=== PATIENT | male | born 1980 | race Two or more races ===

== ENCOUNTER 2019-06-30 01:42 | Emergency (ER) | payer OTHER ==
--- NOTE | 2019-06-30 02:43 | PDOC ---
Attending Attestation - Resident Resident Name: Monik Hooker - ED Attending Attestation I have performed the following: I have examined & evaluated the patient, The case was reviewed & discussed with the resident, I agree w/resident's findings & plan - HPI HPI: 06/30/19 06:53 Pt comes with right and left leg/foot swelling; left worse than right Pt states that it is painful to walk on the left foot. Pt has swelling, but no hx of blood clots, no travel, no stasis, no cancers. No smoking, and no risk factors for blood clots other than obesity and DM. - Physicial Exam PE: 06/30/19 06:54 Normal heart and lungs afebrile abd obese NT ND No flank pain Rashes on body (itchy rash linear /?bites vs scabies) - Medical Decision Making 07/05/19 22:44 Pt will be signed out to the day team for DVT study. D-dimer is elevated. Pt has normal CBC and comp; Pt has 3+ glc in his urine, but blood glc is well controlled.
[2019-06-30 02:45] VITALS: BMI 33.0
--- NOTE | 2019-06-30 02:57 | PDOC ---
History of Present Illness - General Chief Complaint: Edema Stated Complaint: FOOT PAIN,FEVER Time Seen by Provider: 06/30/19 02:36 - History of Present Illness Initial Comments: Mira Moore is a 39yo man with a PMH of IDDM, HTN, HLD who presents to the ED with left foot and ankle pain, swelling and itching that started this evening. He reports that he was out walking this evening, felt itching on his left ankle, and went to rinse his foot and ankle in water. He noticed that his foot was swollen and tender, so he came to the ED for evaluation. Mr Moore states that he had a similar incident about a week ago involving his right wrist. The wrist was itchy, painful, and swollen but the symptoms resolved without intervention. He was not seen by a doctor and did not take any medication. He also notes that he has been very itchy recently with red bumps over his back and extremities on several occasions. He still has some of the itchy bumps on his back. He has also not taken any medication for this symptom. He has not had any throat swelling, difficulty swallowing, difficulty breathing , wheezing, or cough. He has no known allergies or history of asthma. He denies any new soaps, detergents, foods, or other exposures. He says that no one in his family has similar markings, either the itching bumps or scabbed lesions that he notes on his ankles, which he said occurred from his son accidentally scratching him while helping him with the itching skin. 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 Past History - Past Medical History Allergies/Adverse Reactions: Allergies Allergy/AdvReac Type Severity Reaction Status Date / Time No Known Allergies Allergy Verified 06/30/19 02:33 Home Medications: Ambulatory Orders Gabapentin 300 mg PO TID 06/30/19 Icosapent Ethyl [Vascepa] 1 gm PO TID 06/30/19 Insulin Aspart [Novolog] 100 unit SQ TID 06/30/19 Insulin Degludec [Tresiba Flextouch U-100] 100 unit SQ HS 06/30/19 Lisinopril [Zestril] 2.5 mg PO DAILY 06/30/19 Sitagliptin Phos/Metformin HCl [Janumet 50-1,000 mg Tablet] 1 each PO BID COPD: No Diabetes: Yes HTN: Yes Hypercholesterolemia: Yes - Surgical History Orthopedic Surgery: Yes (RIGHT FOOT) - Psycho Social/Smoking Cessation Hx Smoking History: Former smoker Have you smoked in the past 12 months: No Number of Cigarettes Smoked Daily: 4 Information on smoking cessation initiated: No 'Breaking Loose' booklet given: 06/20/16 Hx Alcohol Use: No Drug/Substance Use Hx: No Review of Systems - Review of Systems Comments:: General: No fevers, no chills, no weight or appetite change, no malaise HEENT: No changes in vision, no changes in hearing, no congestion, no sore throat CV: No chest pain, no palpitations, no LE edema Pulm: No SOB, no cough, no wheezing GI: No nausea or vomiting, no change in bowel habits, no melena : No frequency, no urgency, no dysuria Musc: No back pain, + joint swelling, no recent injury Skin: See HPI Endo: No excessive thirst, no heat/cold intolerance. h/o IDDM Heme: No unusual bruising or bleeding, no swollen glands Neuro: No syncope, no numbness/tingling, no focal weakness Vasc: No claudication Psych: No recent change in mood, no SI or HI *Physical Exam - Vital Signs Last Vital Signs Temp Pulse Resp BP Pulse Ox 99.0 F 109 H 17 160/86 97 06/30/19 02:29 06/30/19 02:29 06/30/19 02:29 06/30/19 02:29 06/30/19 02:29 - Physical Exam General: Comfortable, no acute distress HEENT: Atraumatic, PERRL, EOMI, MMM, voice normal, normal neck ROM Cards: RRR, no murmur appreciated Pulm: Comfortable on room air, clear to auscultation bilaterally Abd: Soft, nontender, nondistended Ext: 2+ Nonpitting BLE edema, L>R. Left foot and ankle diffusely TTP without visible injury or deformity. No calf tenderness, no erytema. ROM intact. Vasc: Extremities WWP. Skin: Erythematous, 1cm wheals over back and right wrist and forearm. Small scabbed lesions in linear patterns on all extremities, especially b/l shins Neuro: A&Ox3, CN grossly intact, normal speech, motor/sensory grossly intact and symmetric Psych: Mood appropriate to situation ED Treatment Course - LABORATORY CBC & Chemistry Diagram: 06/30/19 03:45 06/30/19 03:45 Medical Decision Making - Medical Decision Making 06/30/19 02:56 Gertrudisalejandra Moore is a 39yo man with a PMH of IDDM, HTN, HLD who presents to the ED with left foot and ankle pain, swelling and itching that started this evening. He reports a similar incident with his right wrist about a week ago that resolved without intervention. He additionally notes intermittent full body itching with raised erythematous lesions recently as well. - Unclear combination of symptoms including BLE swelling, hives over back and upper extremities, itching, TTP over left foot and ankle. 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 No respiratory or airway compromise appreciated. Benadryl for itching 06/30/19 04:28 - Labs reviewed. Notable for d-dimer 4500 - Eliquis and CTA chest ordered by Dr Zapata due to concern for DVT/PE - BLE duplex to be completed when US department is open in the morning - Foot xray negative for acute injury, notes swelling 06/30/19 07:13 - CTA chest negative - Duplex to be completed - Patient signed out to Dr Baeza for the remainder of his ED care Discussed with Dr Jodi Hooker PGY2 Discharge - Discharge Information Problems reviewed: Yes Clinical Impression/Diagnosis: Hives of unknown origin, Leg swelling, Elevated d-dimer - Follow up/Referral - Patient Discharge Instructions - Post Discharge Activity
[2019-06-30] MEDS ORDERED: diphenhydrAMINE HCL 50 MG CAPSULE PO ONE (03:06)
[2019-06-30] MEDS ORDERED: diphenhydrAMINE HCL 25 MG CAPSULE (FP) PO ONE (03:17)
[2019-06-30] MEDS ORDERED: SODIUM CHLORIDE 0.9% 500 ML INFUS.BAG IV ONE (03:30)
[2019-06-30 03:56] LABS: BASO % 0.3 % (0-2.0); EOS % 2.7 % (0-4.5); HEMATOCRIT 38.1 % (35.4-49); HEMOGLOBIN 12.2 GM/dL (11.7-16.9); LYMPH % 15.1 % (8-40); MCH 21.6 pg (25.7-33.7); MCHC 31.9 g/dl (32.0-35.9); MEAN CELL VOLUME 67.5 fl (80-96); MEAN PLT VOLUME 9.1 fl (7.5-11.1); MONO % 4.7 % (3.8-10.2); NEUT % 77.2 % (42.8-82.8); PLATELET COUNT 218 K/MM3 (134-434); RBC 5.64 M/mm3 (4.00-5.60); RDW 18.2 % (11.9-15.9); WHITE BLOOD COUNT 10.4 K/mm3 (4.0-10.0)
[2019-06-30 04:16] LABS: ALBUMIN 4.1 g/dl (3.4-5.0); BILIRUBIN,TOTAL 0.9 mg/dL (0.2-1); CALCIUM 9.3 mg/dL (8.5-10.1); CREATININE 0.8 mg/dL (0.55-1.3); POTASSIUM 4.4 mmol/L (3.5-5.1)
[2019-06-30 04:28] LABS: PH,URINE 6.5 (5.0-8.0); URINE APPEARANCE CLEAR; URINE BILIRUBIN NEGATIVE (NEGATIVE); URINE COLOR YELLOW; URINE GLUCOSE (UA) 3+ (NEGATIVE); URINE KETONE NEGATIVE (NEGATIVE); URINE LEUK ESTERASE NEGATIVE (NEGATIVE); URINE NITRITE NEGATIVE (NEGATIVE); URINE PROTEIN NEGATIVE (NEGATIVE); URINE UROBILINOGEN 0.2 mg/dL (0.2-1.0)
[2019-06-30] MEDS ORDERED: APIXABAN 5 MG TABLET ONE (04:35)
[2019-06-30] MEDS ORDERED: APIXABAN 5 MG TABLET PO ONE (04:37)
[2019-06-30 04:40] LABS: INR 0.99 (0.83-1.09); PROTHROMBIN TIME (PATIENT) 11.7 SEC (9.7-13.0)
--- NOTE | 2019-06-30 07:08 | PDOC ---
History of Present Illness - General Chief Complaint: Edema Stated Complaint: FOOT PAIN,FEVER Time Seen by Provider: 06/30/19 02:36 - History of Present Illness Initial Comments: Patient signed out by Dr. Hooker 39yo M with PMH of IDDM, HTN, HLD who presents to the ED with left foot and ankle pain, swelling and itching that started this evening. Ddimer 4500 Eliquis and CTA chest ordered by Dr Zapata due to concern for DVT/PE Benadryl administered PCP is Dr. Abhishek Mayers CTA as read by imaging quality control technician: "Mild hepatomegaly and steatosis. Mild nonspecific splenomegaly. Mild degenerative disc disease. FINDINGS: No large central pulmonary embolism. Evaluation of the distal segmental branches are limited by artifact. No aortic aneurysm or dissection. Heart size within normal limits. Mild basilar atelectasis. No pleural effusion. No pneumothorax. Mild nonspecific bilateral breast enlargement most likely due to gynecomastia. Subcentimeter mediastinal and hilar lymph nodes noted. Small hiatal hernia with mild nonspecific lower esophageal wall thickening most likely due to mild reflux esophagitis. IMPRESSION: No large central pulmonary embolism. Mild nonspecific bilateral breast enlargement most likely due to gynecomastia. If clinically indicated follow-up outpatient bilateral breast ultrasound may be needed. Small hiatal hernia with mild nonspecific lower esophageal wall thickening most likely due to mild reflux esophagitis. Mild hepatomegaly and steatosis. Mild nonspecific splenomegaly. This CT exam was performed using one or more of the following dose reduction techniques: automated exposure control, adjustment of the mA and/or kV according to patient size, use of iterative reconstruction technique." Pending Duplex when US is available in the morning 06/30/19 07:21 Duplex negative for DVT: "EXAM#: TYPE/EXAM: RESULT: [id number] US/DUPLEX VASCUL US-2LEGS Bilateral leg pain. Rule out DVT Bilateral leg color Doppler and duplex venous ultrasound Grayscale, pulsed Doppler and color Doppler interrogation of both lower extremities deep venous system was performed. The common femoral vein, femoral vein, popliteal and posterior tibial vein were identified, bilaterally with a normal phasic wave form, adequate compressibility and adequate response to augmentation. Visualized portion of the greater saphenous and deep femoral vein are patent No Lawrence's cyst is identified in the popliteal fossa, bilaterally. Impression: There is no evidence of deep venous thromboses in both lower extremities. " 06/30/19 10:10 Imaging studies negative for PE and DVT His burning foot pain and history of diabetes may be due to neuropathy To follow up with PCP Motrin/tylenol sent to pharmacy Stable for discharge Return precautions Past History - Past Medical History Allergies/Adverse Reactions: Allergies Allergy/AdvReac Type Severity Reaction Status Date / Time No Known Allergies Allergy Verified 06/30/19 02:33 Home Medications: Ambulatory Orders Acetaminophen [Pain Relief] 500 mg PO Q6H PRN #30 tablet 06/30/19 Gabapentin 300 mg PO TID 06/30/19 Ibuprofen [Motrin -] 600 mg PO QID PRN #28 tablet 06/30/19 Icosapent Ethyl [Vascepa] 1 gm PO TID 06/30/19 Insulin Aspart [Novolog] 100 unit SQ TID 06/30/19 Insulin Degludec [Tresiba Flextouch U-100] 100 unit SQ HS 06/30/19 Lisinopril [Zestril] 2.5 mg PO DAILY 06/30/19 Sitagliptin Phos/Metformin HCl [Janumet 50-1,000 mg Tablet] 1 each PO BID COPD: No Diabetes: Yes HTN: Yes Hypercholesterolemia: Yes - Surgical History Orthopedic Surgery: Yes (RIGHT FOOT) - Psycho Social/Smoking Cessation Hx Smoking History: Former smoker Have you smoked in the past 12 months: No Number of Cigarettes Smoked Daily: 4 Information on smoking cessation initiated: No 'Breaking Loose' booklet given: 06/20/16 Hx Alcohol Use: No Drug/Substance Use Hx: No *Physical Exam - Vital Signs Last Vital Signs Temp Pulse Resp BP Pulse Ox 99.0 F 109 H 17 160/86 97 06/30/19 02:29 06/30/19 02:29 06/30/19 02:29 06/30/19 02:29 06/30/19 02:29 ED Treatment Course - LABORATORY CBC & Chemistry Diagram: 06/30/19 03:45 06/30/19 03:45 - ADDITIONAL ORDERS Additional order review: Laboratory Results 06/30/19 06/30/19 06/30/19 04:13 03:45 03:45 PT with INR 11.70 INR 0.99 PTT (Actin FS) D-Dimer Sodium Potassium Chloride Carbon Dioxide Anion Gap BUN Creatinine Est GFR (CKD-EPI)AfAm Est GFR (CKD-EPI)NonAf Random Glucose Calcium Total Bilirubin AST ALT Alkaline Phosphatase B-Natriuretic Peptide 19.0 Total Protein Albumin Urine Color Yellow Urine Appearance Clear Urine pH 6.5 Ur Specific [place] 1.027 Urine Protein Negative Urine Glucose (UA) 3+ H Urine Ketones Negative Urine Blood Negative Urine Nitrite Negative Urine Bilirubin Negative Urine Urobilinogen 0.2 Ur Leukocyte Esterase Negative 06/30/19 06/30/19 06/30/19 03:45 03:45 03:45 PT with INR INR PTT (Actin FS) 36.8 H D-Dimer 4497 H Sodium 138 Potassium 4.4 Chloride 104 Carbon Dioxide 27 Anion Gap 8 BUN 14.0 Creatinine 0.8 Est GFR (CKD-EPI)AfAm 129.51 Est GFR (CKD-EPI)NonAf 111.74 Random Glucose 224 H Calcium 9.3 Total Bilirubin 0.9 AST 15 ALT 15 Alkaline Phosphatase 80 B-Natriuretic Peptide Total Protein 7.0 Albumin 4.1 Urine Color Urine Appearance Urine pH Ur Specific [place] Urine Protein Urine Glucose (UA) Urine Ketones Urine Blood Urine Nitrite Urine Bilirubin Urine Urobilinogen Ur Leukocyte Esterase 06/30/19 03:45 RBC 5.64 H MCV 67.5 L MCHC 31.9 L RDW 18.2 H MPV 9.1 Neutrophils % 77.2 Lymphocytes % 15.1 Monocytes % 4.7 Eosinophils % 2.7 Basophils % 0.3 - Medications Given in the ED: ED Medications Discontinued Medications Generic Name Dose Route Start Last Admin Trade Name Freq PRN Reason Stop Dose Admin Apixaban 10 mg 06/30/19 04:37 06/30/19 05:38 Eliquis - PO 06/30/19 04:38 10 mg NOW ONE Administration Diphenhydramine HCl 50 mg 06/30/19 03:06 06/30/19 03:21 Benadryl - PO 06/30/19 03:07 50 mg ONCE ONE Administration Sodium Chloride 1,000 ml 06/30/19 03:30 06/30/19 04:02 Normal Saline - IV 06/30/19 03:31 1,000 ml ONCE ONE Administration Discharge - Discharge Information Problems reviewed: Yes Clinical Impression/Diagnosis: Hives of unknown origin, Leg swelling, Elevated d-dimer Condition: Stable Disposition: HOME - Additional Discharge Information Prescriptions: Acetaminophen [Pain Relief] 500 mg PO Q6H PRN #30 tablet PRN Reason: Pain Ibuprofen [Motrin -] 600 mg PO QID PRN #28 tablet PRN Reason: Pain - Follow up/Referral - Patient Discharge Instructions Patient Printed Discharge Instructions: DI for Leg Pain Additional Instructions: You came into the emergency department for leg pain. CT and ultrasound did not show evidence of a blood clot. Follow-up with your primary care provider within 72 hours. Your care is not complete until you do so. Call and make an appointment. Immediate medical attention is required if you have -severe pain -lightheadedness -shortness of breath -high fever -any other concerning symptoms If you think you are having an emergency, call for emergency medical services or present to the emergency department right away. - Post Discharge Activity Work/Back to School Note: Back to Work
[2019-06-30] MEDS ORDERED: APIXABAN 5 MG TABLET PO SCH (10:00)
[2019-06-30 10:53] VITALS: BP 130/83; PULSE 89; TEMP 97.3
== END 2019-06-30 10:55 | disposition home or self-care (01) ==
LOC: JER 01:42
DX: L50.9 Urticaria, unspecified (principal); R94.8 Abnormal results of function studies of other organs and systems; M79.89 Other specified soft tissue disorders; Z87.891 Personal history of nicotine dependence; E11.9 Type 2 diabetes mellitus without complications; I10 Essential (primary) hypertension; E78.00 Pure hypercholesterolemia, unspecified
CPT/HCPCS: 36415; 71275-TC; 73630-TC-LT; 80053; 81003; 83880; 85025; 85379; 85610; 85730; 93970-TC; 99285-25; Q9967

== ENCOUNTER 2020-01-07 06:07 | Day surgery (SDC) | payer OTHER ==
[2020-01-06 16:50] VITALS: BMI 34.0
[~2020-01-07 06:07] MED LIST: ACETAMINOPHEN 325 MG TABLET (FP) PO PRN; CYCLOPENTOLATE HCL 1% OPHTH SOLN 2 ML BOTTLE OP SCH; KETOROLAC TROMETHAMINE 0.5% EYE DROP 1 DROP DROPS OP SCH; OFLOXACIN 0.3% OPHTHALMIC SOLUTION 5 ML BOTTLE OP SCH; PHENYLEPHRINE 2.5% OPHTH SOLN 15 ML BOTTLE OP SCH; TROPICAMIDE 1% OPHTH SOLN 15 ML BOTTLE OP SCH
[2020-01-07] MEDS ORDERED: OFLOXACIN 0.3% OPHTHALMIC SOLUTION 5 ML BOTTLE ONE (07:07)
[2020-01-07] MEDS ORDERED: TROPICAMIDE 1% OPHTH SOLN 15 ML BOTTLE ONE (07:07)
[2020-01-07] MEDS ORDERED: CYCLOPENTOLATE HCL 1% OPHTH SOLN 2 ML BOTTLE ONE (07:07)
[2020-01-07] MEDS ORDERED: KETOROLAC TROMETHAMINE 0.5% EYE DROP 1 DROP DROPS ONE (07:07)
[2020-01-07] MEDS ORDERED: PHENYLEPHRINE 2.5% ONE (07:14)
[2020-01-07] MEDS ORDERED: EPINEPHrine/PF 1 MG/1 ML (1:1,000) AMPULE ONE (07:21)
[2020-01-07] MEDS ORDERED: LIDOCAINE HCL/PF 1% SDV 5ML VIAL ONE (07:24)
[2020-01-07] MEDS ORDERED: LIDOCAINE HCL/PF 2% SDV 5ML VIAL ONE ×2 (07:24→08:08)
[2020-01-07] MEDS ORDERED: BUPIVACAINE HCL/PF 0.75% 10 ML VIAL ONE (07:24)
[2020-01-07] MEDS ORDERED: TRYPAN BLUE 0.5 ML DISP.SYRIN ONE (07:24)
[2020-01-07] MEDS ORDERED: VANCOMYCIN 500 MG VIAL (RESTRICTED TO ID ONLY) ONE (07:24)
[2020-01-07] MEDS ORDERED: POVIDONE-IODINE 5% OPHTHALMIC PREP 30 ML SOLUTION ONE (07:25)
[2020-01-07] MEDS ORDERED: TETRACAINE 0.5% OPHTH SOLN 2 ML BOTTLE ONE (07:25)
[2020-01-07] MEDS ORDERED: MIDAZOLAM HCL 2 MG/2 ML SINGLE DOSE VIAL ONE (07:54)
[2020-01-07] MEDS ORDERED: PROPOFOL 20 ML ONE (08:07)
[2020-01-07] MEDS ORDERED: LIDOCAINE HCL/PF 2% SDV 5ML VIAL PNB ONE (08:10)
[2020-01-07] MEDS ORDERED: BUPIVACAINE HCL/PF 0.75% 10 ML VIAL PNB ONE ×2 (08:10)
[2020-01-07] MEDS ORDERED: LIDOCAINE HCL/PF 2% SDV 5ML VIAL INF ONE (08:10)
[2020-01-07] MEDS ORDERED: TRYPAN BLUE 0.5 ML DISP.SYRIN IO ONE (08:15)
[2020-01-07] MEDS ORDERED: CHONDROITIN SU A/HYALUR SOD 1 KIT IO ONE (08:16)
[2020-01-07] MEDS ORDERED: HYALURONATE SODIUM 14 MG/ML DISP.SYRIN IO ONE (08:20)
[2020-01-07] MEDS ORDERED: EPINEPHrine/PF 1 MG/1 ML (1:1,000) AMPULE SQ ONE (08:21)
[2020-01-07 10:06] VITALS: BP 122/75; PULSE 102; TEMP 98.2
[2020-01-07] MEDS ORDERED: CHONDROITIN SU A/HYALUR SOD 1 KIT ONE (10:07)
--- NOTE | 2020-01-08 10:58 | OP ---
DATE OF OPERATION: 01/07/2020 PREOPERATIVE DIAGNOSIS: Mature cataract, left eye. POSTOPERATIVE DIAGNOSIS: Mature cataract, left eye. PROCEDURE: Phacoemulsification of left cataract with posterior chamber intraocular lens implantation and capsule staining with trypan blue. The lens used, [id number], 18.5 diopter power, serial number [id number]. ANESTHESIA: Peribulbar/modified Van Lint/MAC. COMPLICATIONS: None. DESCRIPTION OF PROCEDURE: Patient was brought to the operating room and correctly identified along with the operative site, as well as correct intraocular lens naik. He was then given a peribulbar block under sedation with 5 mL of 1:1 mixture of 2% lidocaine and 0.5% bupivacaine. The same mixture, 2 mL, was given as a modified [place] Lint eyelid block. The eye was then prepped and draped in the usual sterile fashion including 5% Betadine solution in the conjunctival sac and an eyelid drape. The eye was then inspected and a white cataract was noted. A paracentesis port was created, and 0.5 mL of preservative-free lidocaine 1% was given intracamerally. An air bubble was then placed into the anterior chamber, and the capsule was stained with trypan blue. A temporal clear corneal wound was created. Viscoat and healon BV were placed in the anterior chamber. A continuous curvilinear capsulorrhexis was successfully created. A small amount of cortical milk was noted to egress, but there was no increased intralenticular pressure, affecting the ability to perform the capsulorhexis. The nucleus was the hydrodissected and hydrodelineated with BSS and removed with phacoemulsification via [id number] approach. The remaining cortical material was irrigated and aspirated from the eye. Viscoelastic was then injected to inflate the capsular bag, and the lens was injected into the capsular bag. The viscoelastic was then irrigated and aspirated from the eye. All wounds were stromal hydrated, tested and found to be watertight. At the end of the procedure, the intraocular lens was noted to be well centered and covered by the anterior capsule border. There was no leakage from any sites. Topical vancomycin given, the eye patched and shielded, and patient discharged from the operating room in stable condition. BEAR MILLER M.D. [id number] MTDD
== END 2020-01-07 12:01 | disposition home or self-care (01) ==
LOC: JASU-SURG 06:07
PROVIDERS: ATTEND Ophthalmology
PROC: 08RK3JZ Replacement of Left Lens with Synthetic Substitute, Percutaneous Approach (ICD-10-PCS; principal; 2020-01-07 08:00)
DX: H26.9 Unspecified cataract (principal); E11.9 Type 2 diabetes mellitus without complications; Z79.4 Long term (current) use of insulin; I10 Essential (primary) hypertension; E66.9 Obesity, unspecified
CPT/HCPCS: 82962

== ENCOUNTER 2021-10-18 14:14 | Emergency (ER) | payer OTHER ==
[2021-10-18 14:53] VITALS: TEMP 98; BMI 37.0
[2021-10-18] MEDS ORDERED: SODIUM CHLORIDE 0.9% 500 ML INFUS.BAG IV ONE (15:05)
[2021-10-18] MEDS ORDERED: FAMOTIDINE 20 MG/50 ML IVPB 20 MG/50 ML MG IVPB ONE ×2 (15:05→15:11)
[2021-10-18] MEDS ORDERED: DEXAMETHASONE SOD PHOSPHATE 20 MG/5 ML VIAL IVPB ONE (15:05)
[2021-10-18] MEDS ORDERED: DEXAMETHASONE SOD PHOSPHATE 10 MG/1 ML VIAL ONE (15:10)
[2021-10-18 15:40] VITALS: BP 107/62; PULSE 109
== END 2021-10-18 18:08 | disposition home or self-care (01) ==
LOC: SUPCPDRO 14:14 → JER 14:14
PROC: 3E033GC Introduction of Other Therapeutic Substance into Peripheral Vein, Percutaneous Approach (ICD-10-PCS; principal; 2021-10-18)
PROC: 3E033GC Introduction of Other Therapeutic Substance into Peripheral Vein, Percutaneous Approach (ICD-10-PCS; 2021-10-18)
PROC: 3E033GC Introduction of Other Therapeutic Substance into Peripheral Vein, Percutaneous Approach (ICD-10-PCS; 2021-10-18)
DX: L50.0 Allergic urticaria (principal); R06.02 Shortness of breath; T78.40XA Allergy, unspecified, initial encounter
CPT/HCPCS: 93005; 93010; 93970-TC; 99284-25